=== PATIENT | female | born 1995 | race Caucasian/White ===

== ENCOUNTER → 2017-02-27 | Outpatient (CLI) | payer MEDICAID ==
--- NOTE | 2017-02-27 13:13 | Diagnostic Imaging Report ---
INDICATION: Dating. TECHNIQUE: Multiple real-time grayscale images were obtained over the gravid uterus. COMPARISON: None. FINDINGS: heart rate is 150 beats per minute. The placenta is fundal and posterior. No placenta previa. There is adequate amniotic fluid seen. The cervix appears closed and is 3.8 cm in length. The posterior fossa, lateral ventricles, four-chamber view, stomach, are seen without definitive abnormality. The spine, the cord insertion, The three vessel view and the urinary bladder are not well evaluated on this exam. The left kidney demonstrates slightly prominent renal collecting system with renal pelvis AP measurement measuring up to 8 mm. Biometrical measurements are as follows: Biparietal 5.13 cm, age 21 weeks 4 days. Head circumference 20.17 cm, age 22 weeks 3 days. Abdominal circumference 20.16 cm, age 24 weeks 6 days. Femur length 4.14 cm, age 23 weeks 4 days. Sonographic estimate age: 23 weeks 1 days. Sonographic estimated date of delivery: 06/25/2017. Estimated Weight: 638 gm (+/- 93 gm). LMP percentile: 78%. heart rate: 150 beats per minute. number: 1 of 1. IMPRESSION: The left renal collecting system is slightly prominent. Followup exam is recommended. Also followup to better evaluate cord insertion, spine, three-vessel cord and urinary bladder is recommended. Dictated by: Dictated on workstation # [id number]
== END ==
LOC: RAD 11:29
PROVIDERS: ATTEND Obstetrics & Gynecology
DX: O26.842 Uterine size-date discrepancy, second trimester (principal); Z3A.23 23 weeks gestation of pregnancy
CPT/HCPCS: 76805

== ENCOUNTER → 2017-05-04 | Outpatient (CLI) | payer MEDICAID ==
--- NOTE | 2017-05-04 14:12 | Diagnostic Imaging Report ---
INDICATION: Followup spine, cord insertion, left kidney, bladder and umbilical arteries. TECHNIQUE: Multiple real-time grayscale images were obtained over the gravid uterus. COMPARISON: 02/27/2017 FINDINGS: heart rate is 132 beats per minute. The presentation is cephalic. The head obscures the cervix. The placenta is fundal. No placenta previa. The amniotic fluid amount appears adequate with DAMARIS of 13.8 cm. The spine, urinary bladder, cord insertion, and 2 umbilical arteries suggested. The left kidney demonstrates no significant hydronephrosis. IMPRESSION: Completed survey with no definite abnormality. Dictated by: Dictated on workstation # [id number]
== END ==
LOC: RAD 10:04
PROVIDERS: ATTEND Obstetrics & Gynecology
DX: Z36.89 Encounter for other specified antenatal screening (principal); Z3A.32 32 weeks gestation of pregnancy
CPT/HCPCS: 76816

== ENCOUNTER 2017-06-16 16:10 | Inpatient (IN) | payer MEDICAID ==
[~2017-06-16] VITALS: Ht 162.6 cm; Wt 73.5 kg
[2017-06-16] VITALS (10 sets, daily range): BP systolic 96–126; BP diastolic 55–70
[2017-06-16] MEDS ORDERED: D5 LR IV SOLUTION 1,000 ML IV ONE (16:25)
[2017-06-16] MEDS: OXYTOCIN/NORMAL SALINE 500 ML IV SCH ×3 (16:28→19:03)
[2017-06-16] MEDS ORDERED: D5 LR IV SOLUTION 1,000 ML IV SCH (16:52)
--- NOTE | 2017-06-16 16:57 | History & Physical-OB ---
OB - Chief Complaint & HPI Date/Time Date of Admission: Date of Admission: 06/16/2017 Time Seen by Provider: 16:45 Chief Complaint/History Hx : 3 Hx Para: 1 Expected Date of Delivery: Jun 25, 2017 Gestational Age in Weeks: 38 Gestational Age in Days: 5 History of Labs O pos Antibody neg RI RPR NR HBsAg NR HIV NR GC neg GBS neg Allergies and Home Medications Allergies Coded Allergies: No Known Drug Allergies (Unverified , 03/11/17) Home Medications No Active Prescriptions or Reported Meds OB - History Hx of Present Care: No (late, minimal, and non-compliant) Ultrasounds: Normal mid trimester US Obstetrical Complications: None Medical Complications: None Patient Past Medical History n/a Immunizations Tetanus Booster (TDap): More than 5yrs OB - Admission Exam Physical Exam HEENT: NCAT Heart: Rhythm Normal Lungs: Clear Abdomen: Gravid Extremities: Normal Reflexes: Normal Cervical Dilatation: 7cm Effacement: 75% Station: -1 Membranes: Intact Heart Rate: 130's Accelerations: Accelerations Present Decelerations: No Decelerations Short Term Variability: Present Group Home Variability: Average (6-25) Contractions on Admission: 6-10 Minutes Apart Intensity: Firm OB - Assessment/Plan/Diagnosis Assessment Assessment: active labor Plan Induction Method: AROM Other Plan AROM Anticipate Discharge Diagnosis Diagnosis: 22 yo @ 38.5 Active labor GBS neg Limited care CLEO ROPER DO Jun 16, 2017 4:57 pm
[2017-06-16 17:12] LABS: BASOPHILS % (AUTO) 1 % (0-10); EOSINOPHILS % (AUTO) 0 % (0-10); HEMATOCRIT 35 % (35-52); HEMOGLOBIN 11.8 G/DL (11.5-16.0); LYMPHOCYTES # (AUTO) 0.7 X 10^3 (1.0-4.0); LYMPHOCYTES % (AUTO) 11 % (12-44); MEAN CORPUSCULAR HEMOGLOBIN 30 PG (25-34); MEAN CORPUSCULAR HGB CONC 33 G/DL (32-36); MEAN CORPUSCULAR VOLUME 90 FL (80-99); MEAN PLATELET VOLUME 10.2 FL (7.4-10.4); MONOCYTES # (AUTO) 0.4 X 10^3 (0.0-1.0); MONOCYTES % (AUTO) 7 % (0-12); NEUTROPHILS # (AUTO) 5.1 X 10^3 (1.8-7.8); NEUTROPHILS % (AUTO) 82 % (42-75); PLATELET COUNT 203 10^3/uL (130-400); RED BLOOD COUNT 3.93 10^6/uL (4.35-5.85); RED CELL DISTRIBUTION WIDTH 14.2 % (10.0-14.5); WHITE BLOOD COUNT 6.2 10^3/uL (4.3-11.0)
[2017-06-16 17:13] LABS: AMPHETAMINE SCREEN, URINE NEGATIVE (NEGATIVE); BARBITURATE SCREEN URINE NEGATIVE (NEGATIVE); BENZODIAZEPINES SCREEN URINE NEGATIVE (NEGATIVE); CANNABINOID SCREEN, URINE NEGATIVE (NEGATIVE); COCAINE SCREEN URINE NEGATIVE (NEGATIVE); METHADONE STAT NEGATIVE (NEGATIVE); METHAMPHETAMINE SCREEN URINE S NEGATIVE (NEGATIVE); OPIATE SCREEN URINE NEGATIVE (NEGATIVE); OXYCODONE STAT NEGATIVE (NEGATIVE); PROPOXYPHENE STAT NEGATIVE (NEGATIVE); TRICYCLIC ANTIDEPRESSANTS SCRE NEGATIVE (NEGATIVE)
--- NOTE | 2017-06-16 17:49 | Discharge Inst-Women's Service ---
Discharge Inst-Women's Serv Depart Medication/Instructions New, Converted or Re-Newed RX: RX on Chart Consults/Follow Up Additional Follow Up: Yes Activity Activity: Activity as Tolerated Driving Instructions: No Driving for 1 Week NO SMOKING: NO SMOKING Nothing Inside Vagina: No Douching, No [place], No Tampons Diet Discharge Diet: No Restrictions Symptoms to Report to : Bleeding Excessive, Pain Increased, Fever Over 101 Degrees F, Vaginal Bleeding Increase, Questions/Concerns For Any Problems or Questions: Contact Your Physician Skin/Wound Care Bathing Instructions: Shower ( x 2 weeks or sitz baths) CLEO ROPER DO Jun 16, 2017 5:49 pm
[2017-06-16] MEDS ORDERED: MINERAL OIL CONCENTRATE 99.9% 15 ML UDC ONE (17:52)
[2017-06-16] MEDS ORDERED: LIDOCAINE/EPI 2% 1:200,00 (XYLOCAINE) 10 ML VIAL ONE (17:52)
--- NOTE | 2017-06-16 17:55 | OB Labor & Delivery Record ---
L&D History Date of Service Date of Service: Jun 16, 2017 History Expected Date of Delivery: Jun 25, 2017 Gestational Age in Weeks: 38 Hx : 3 Hx Para: 1 Complications Events: Routine care (limited care) Operative Indications (Cesarea: N/A-Vaginal Delivery Intrapartal Events: None L&D Stage1 Stage One Onset of Labor - Date: Jun 16, 2017 Monitors and Tracing Monitor Mode: External Monitor Accelerations: None Monitor Decelerations: Variable Station: 0 Nursing Home Variability: Minimal (3-5) Short Term Variability: Present Presentation: Vertex Rupture of Membranes Amniotic Membrane Rupture Time: 16:45 Amniotic Membrane Fluid Desc.: Meconium Stained Vaginal Bleeding Description: Normal Show L&D Stage2 Stage Two Stage II Date: Jun 16, 2017 Monitors and Tracing Position: Right Occiput Anterior Presentation: Vertex Cord Descript/Complications Cord Vessel Description: 3 Vessels Complications Ineffective maternal pushing indication for low vaccum extraction. Mother was out of control with pushing, and screaming to get the baby out without any progression in station with pushing. From +2 station kiwi placed in appropriate usualy fashion and with next maternal push, head was extended for delivery over intact perineum Delivery Type Delivery Method: Low Vacuum Extraction Anterior Shoulder: Right Episiotomy/Perineal Laceration Laceraction(s)/Extensions: No Condition of Delivery 1 minute Comment: 8 5 minute Comment: 9 Condition of Infant Condition of Infant: Living live female infant weight pending Resuscitation Resuscitation: N/A - Spontaneous Resp L&D Stage3 Stage Three Stage III Date: Jun 16, 2017 Pictocin Pitocin Administration Comment: 30 mu wide open at delivery of placenta Placenta Delivery Placenta Delivery: Spontaneous Delivery Summary Summary Estimated blood loss (mL): 350 Attending at delivery: Cleo Roper DO Condition of Delivery Examined: Cervix Examined, Uterus Explored Post Hemorrhage: No Condition of Mother stable Condition of Infant (s) stable CLEO ROPER DO Jun 16, 2017 17:55
[2017-06-16] MEDS ORDERED: BENZOCAINE/MENTHOL (DERMOPLAST) 56 ML CAN TP PRN (18:00)
[2017-06-16] MEDS ORDERED: WITCH HAZEL(TUCKS) 40 EA JAR TOP PRN (18:00)
[2017-06-16] MEDS ORDERED: TETANUS,DIPTH,PERTUSS P/F (BOOSTRIX) 0.5 ML VIAL IM ONE (18:00)
[2017-06-16] MEDS ORDERED: DIBUCAINE (NUPERCAINAL) 1% OINT 30 GM TOP PRN (18:00)
[2017-06-16] MEDS ORDERED: MEASLES,MUMPS,RUBELLA 1 EA INJ SQ ONE (18:00)
[2017-06-16] MEDS ORDERED: HYDROcodone/APAP 5 MG/325 MG (LORTAB) TAB PO PRN (18:00)
[2017-06-16] MEDS ORDERED: IBUP-1773 PO (18:38)
[2017-06-16] MEDS ORDERED: DOCU100C37 PO (18:38)
[2017-06-16] MEDS ORDERED: FERR325T18 PO (18:38)
[2017-06-16] MEDS ORDERED: Benzocaine/Menthol TP (18:38)
[2017-06-16] MEDS ORDERED: ACHD5005 PO (18:38)
[2017-06-16] MEDS ORDERED: HYDROmorphone (DILAUDID) 2 MG/ML VIAL IVP NR (18:45)
[2017-06-16] MEDS: DOCUSATE SODIUM 100 MG (COLACE) CAP PO SCH (20:51)
[2017-06-16] MEDS: IBUPROFEN 600 MG (MOTRIN) TAB PO SCH (20:51)
[2017-06-16] MEDS ORDERED: CATHETER FLUSH 10 ML SYR IV SCH ×2 (22:00)
[2017-06-17] MEDS: IBUPROFEN 600 MG (MOTRIN) TAB PO SCH ×4 (01:59→19:53)
[2017-06-17 05:00] VITALS: BP 94/53
[2017-06-17] MEDS ORDERED: FERROUS SULF 325 MG (IRON) TAB PO SCH (07:00)
[2017-06-17 07:25] LABS: HEMATOCRIT 30 % (35-52); HEMOGLOBIN 9.8 G/DL (11.5-16.0); MEAN CORPUSCULAR HEMOGLOBIN 30 PG (25-34); MEAN CORPUSCULAR VOLUME 90 FL (80-99); RED BLOOD COUNT 3.28 10^6/uL (4.35-5.85); WHITE BLOOD COUNT 5.7 10^3/uL (4.3-11.0)
[2017-06-17 07:26] LABS: BASOPHILS % (AUTO) 0 % (0-10); EOSINOPHILS % (AUTO) 0 % (0-10); LYMPHOCYTES % (AUTO) 18 % (12-44); MEAN CORPUSCULAR HGB CONC 33 G/DL (32-36); MEAN PLATELET VOLUME 10.5 FL (7.4-10.4); MONOCYTES # (AUTO) 0.4 X 10^3 (0.0-1.0); MONOCYTES % (AUTO) 7 % (0-12); NEUTROPHILS # (AUTO) 4.2 X 10^3 (1.8-7.8); NEUTROPHILS % (AUTO) 74 % (42-75); PLATELET COUNT 187 10^3/uL (130-400); RED CELL DISTRIBUTION WIDTH 13.9 % (10.0-14.5)
[2017-06-17] MEDS ORDERED: INFLUENZA TRIvalent 2017-2018 0.5 ML/45 MCG SYR IM ONE (07:30)
[2017-06-17] MEDS ORDERED: TETANUS,DIPTH,PERTUSS P/F (BOOSTRIX) 0.5 ML VIAL IM ONE (09:24)
[2017-06-17 09:29] VITALS: BP 102/64
[2017-06-17] MEDS: DOCUSATE SODIUM 100 MG (COLACE) CAP PO SCH ×2 (09:31→19:53)
[2017-06-17] MEDS: PRENATAL VITAMIN 1 EA TAB PO SCH (09:31)
--- NOTE | 2017-06-17 12:24 | Postpartum Progress Note ---
Note Note Day # 1 s/p Subjective: Patient is without complaints. Ambulating, voiding. Tolerating a regular diet without nausea or vomiting. Normal lochia. Pain is well controlled with oral pain medications. bottle feeding. Objective: Laboratory Tests Test 06/16/17 16:40 06/16/17 17:03 06/17/17 07:19 Range/Units Urine Opiates Screen NEGATIVE NEGATIVE Urine Oxycodone Screen NEGATIVE NEGATIVE Urine Methadone Screen NEGATIVE NEGATIVE Urine Propoxyphene Screen NEGATIVE NEGATIVE Urine Barbiturates Screen NEGATIVE NEGATIVE Ur Tricyclic Antidepressants Screen NEGATIVE NEGATIVE Urine Phencyclidine Screen NEGATIVE NEGATIVE Urine Amphetamines Screen NEGATIVE NEGATIVE Urine Methamphetamines Screen NEGATIVE NEGATIVE Urine Benzodiazepines Screen NEGATIVE NEGATIVE Urine Cocaine Screen NEGATIVE NEGATIVE Urine Cannabinoids Screen NEGATIVE NEGATIVE White Blood Count 6.2 5.7 4.3-11.0 10^3/uL Red Blood Count 3.93 L 3.28 L 4.35-5.85 10^6/uL Hemoglobin 11.8 9.8 L 11.5-16.0 G/DL Hematocrit 35 30 L 35-52 % Mean Corpuscular Volume 90 90 80-99 FL Mean Corpuscular Hemoglobin 30 30 25-34 PG Mean Corpuscular Hemoglobin Concent 33 33 32-36 G/DL Red Cell Distribution Width 14.2 13.9 10.0-14.5 % Platelet Count 203 187 130-400 10^3/uL Mean Platelet Volume 10.2 10.5 H 7.4-10.4 FL Neutrophils (%) (Auto) 82 H 74 42-75 % Lymphocytes (%) (Auto) 11 L 18 12-44 % Monocytes (%) (Auto) 7 7 0-12 % Eosinophils (%) (Auto) 0 0 0-10 % Basophils (%) (Auto) 1 0 0-10 % Neutrophils # (Auto) 5.1 4.2 1.8-7.8 X 10^3 Lymphocytes # (Auto) 0.7 L 1.0 1.0-4.0 X 10^3 Monocytes # (Auto) 0.4 0.4 0.0-1.0 X 10^3 Eosinophils # (Auto) 0.0 0.0 0.0-0.3 10^3/uL Basophils # (Auto) 0.0 0.0 0.0-0.1 10^3/uL Vital Sign - Last 12Hours 06/17/17 06/17/17 05:00 09:29 Temp 96.6 98.4 Pulse 88 82 Resp 18 18 B/P (MAP) 94/53 (67) 102/64 (77) Pulse Ox 99 O2 Delivery Room Air Intake and Output 06/17/17 00:00 Intake Total 1300 ml Balance 1300 ml Physical Exam: General - Alert and oriented, no apparent distress Abdomen - Soft, appropriately tender to palpation, non-distended, fundus firm at umbilicus Extremities - no edema, negative Joy's bilaterally Assessment: 1. post- day # 1, status post Vacuum assisted vaginal delivery. Recovering well, hemodynamically stable Plan: Routine care. Encourage breast feeding. Encourage ambulation. Ferrous sulfate supplementation. Plan for discharge tomorrow Vitals - Labs Vital Signs - I&O Vital Signs Date Time Temp Pulse Resp B/P (MAP) Pulse Ox O2 Delivery O2 Flow Rate FiO2 06/17/17 09:29 98.4 82 18 102/64 (77) 99 Room Air 06/17/17 05:00 96.6 88 18 94/53 (67) 06/16/17 23:30 98.4 86 18 102/64 (77) 98 06/16/17 20:45 100 102/55 (71) 06/16/17 20:30 104 104/57 (73) 06/16/17 20:15 100 114/64 (81) 06/16/17 20:01 98 20 105/55 (72) 06/16/17 19:16 98.0 104 20 115/55 (75) 06/16/17 19:00 100 20 117/59 (78) 06/16/17 18:45 91 20 126/63 (84) 06/16/17 17:33 104 20 114/70 (85) 06/16/17 17:09 99.7 98 20 96/55 (69) I & O 06/17/17 07:00 Intake Total 1300 ml Balance 1300 ml Labs Laboratory Tests 06/16/17 16:40: Urine Opiates Screen NEGATIVE, Urine Oxycodone Screen NEGATIVE, Urine Methadone Screen NEGATIVE, Urine Propoxyphene Screen NEGATIVE, Urine Barbiturates Screen NEGATIVE, Ur Tricyclic Antidepressants Screen NEGATIVE, Urine Phencyclidine Screen NEGATIVE, Urine Amphetamines Screen NEGATIVE, Urine Methamphetamines Screen NEGATIVE, Urine Benzodiazepines Screen NEGATIVE, Urine Cocaine Screen NEGATIVE, Urine Cannabinoids Screen NEGATIVE 06/16/17 17:03: White Blood Count 6.2, Red Blood Count 3.93L, Hemoglobin 11.8, Hematocrit 35, Mean Corpuscular Volume 90, Mean Corpuscular Hemoglobin 30, Mean Corpuscular Hemoglobin Concent 33, Red Cell Distribution Width 14.2, Platelet Count 203, Mean Platelet Volume 10.2, Neutrophils (%) (Auto) 82H, Lymphocytes (%) (Auto) 11L, Monocytes (%) (Auto) 7, Eosinophils (%) (Auto) 0, Basophils (%) (Auto) 1, Neutrophils # (Auto) 5.1, Lymphocytes # (Auto) 0.7L, Monocytes # (Auto) 0.4, Eosinophils # (Auto) 0.0, Basophils # (Auto) 0.0 06/17/17 07:19: White Blood Count 5.7, Red Blood Count 3.28L, Hemoglobin 9.8L, Hematocrit 30L, Mean Corpuscular Volume 90, Mean Corpuscular Hemoglobin 30, Mean Corpuscular Hemoglobin Concent 33, Red Cell Distribution Width 13.9, Platelet Count 187, Mean Platelet Volume 10.5H, Neutrophils (%) (Auto) 74, Lymphocytes (%) (Auto) 18 , Monocytes (%) (Auto) 7, Eosinophils (%) (Auto) 0, Basophils (%) (Auto) 0, Neutrophils # (Auto) 4.2, Lymphocytes # (Auto) 1.0, Monocytes # (Auto) 0.4, Eosinophils # (Auto) 0.0, Basophils # (Auto) 0.0 MEGGAN WILDE DO Jun 17, 2017 12:24
[2017-06-17 14:39] VITALS: BP 98/63
[2017-06-17 17:44] VITALS: BP 107/66
[2017-06-17] MEDS: FERROUS SULF 325 MG (IRON) TAB PO SCH (17:44)
[2017-06-17 19:50] VITALS: BP 116/65
[2017-06-17] MEDS ORDERED: ACETAMINOPHEN 500 MG TAB (TYLENOL) PO ONE (20:45)
[2017-06-18] MEDS: IBUPROFEN 600 MG (MOTRIN) TAB PO SCH ×2 (01:23→11:06)
[2017-06-18 01:25] VITALS: BP 99/62
[2017-06-18] MEDS ORDERED: ACETAMINOPHEN 500 MG TAB (TYLENOL) PO SCH (03:00)
[2017-06-18 06:04] LABS: BASOPHILS % (AUTO) 0 % (0-10); EOSINOPHILS % (AUTO) 0 % (0-10); HEMATOCRIT 28 % (35-52); HEMOGLOBIN 9.3 G/DL (11.5-16.0); LYMPHOCYTES # (AUTO) 1.2 X 10^3 (1.0-4.0); LYMPHOCYTES % (AUTO) 19 % (12-44); MEAN CORPUSCULAR HEMOGLOBIN 30 PG (25-34); MEAN CORPUSCULAR HGB CONC 33 G/DL (32-36); MEAN CORPUSCULAR VOLUME 90 FL (80-99); MEAN PLATELET VOLUME 10.2 FL (7.4-10.4); MONOCYTES # (AUTO) 0.5 X 10^3 (0.0-1.0); MONOCYTES % (AUTO) 9 % (0-12); NEUTROPHILS # (AUTO) 4.4 X 10^3 (1.8-7.8); NEUTROPHILS % (AUTO) 72 % (42-75); PLATELET COUNT 166 10^3/uL (130-400); RED BLOOD COUNT 3.13 10^6/uL (4.35-5.85); RED CELL DISTRIBUTION WIDTH 13.9 % (10.0-14.5)
[2017-06-18 10:10] VITALS: BP 96/62
[2017-06-18] MEDS: FERROUS SULF 325 MG (IRON) TAB PO SCH (10:15)
[2017-06-18] MEDS: PRENATAL VITAMIN 1 EA TAB PO SCH (11:05)
[2017-06-18] MEDS: DOCUSATE SODIUM 100 MG (COLACE) CAP PO SCH (11:06)
--- NOTE | 2017-06-18 11:33 | Postpartum Progress Note ---
Note Note Day # 2 s/p Developed fever last night (102) without explanation. No focal symptoms except fever, chills. WBC wnl. UA negative. Influenza negative. No nausea/emesis/ diarrhea/dysuria. Lungs clear, no cough, congestion. Improved with tylenol and Ibuprofen Subjective: Patient is without complaints. Ambulating, voiding. Tolerating a regular diet without nausea or vomiting. Normal lochia. Pain is well controlled with oral pain medications. bottle feeding Objective: Laboratory Tests Test 06/18/17 05:46 Range/Units White Blood Count 6.0 4.3-11.0 10^3/uL Red Blood Count 3.13 L 4.35-5.85 10^6/uL Hemoglobin 9.3 L 11.5-16.0 G/DL Hematocrit 28 L 35-52 % Mean Corpuscular Volume 90 80-99 FL Mean Corpuscular Hemoglobin 30 25-34 PG Mean Corpuscular Hemoglobin Concent 33 32-36 G/DL Red Cell Distribution Width 13.9 10.0-14.5 % Platelet Count 166 130-400 10^3/uL Mean Platelet Volume 10.2 7.4-10.4 FL Neutrophils (%) (Auto) 72 42-75 % Lymphocytes (%) (Auto) 19 12-44 % Monocytes (%) (Auto) 9 0-12 % Eosinophils (%) (Auto) 0 0-10 % Basophils (%) (Auto) 0 0-10 % Neutrophils # (Auto) 4.4 1.8-7.8 X 10^3 Lymphocytes # (Auto) 1.2 1.0-4.0 X 10^3 Monocytes # (Auto) 0.5 0.0-1.0 X 10^3 Eosinophils # (Auto) 0.0 0.0-0.3 10^3/uL Basophils # (Auto) 0.0 0.0-0.1 10^3/uL Vital Sign - Last 12Hours 06/18/17 01:25 Temp 96.9 Pulse 66 Resp 18 B/P (MAP) 99/62 (74) Pulse Ox 98 Tc 97.9 BP 96/53 P 70 VS - Last 72 Hours, by Label 06/16/17 06/16/17 06/16/17 06/16/17 17:09 17:33 18:45 19:00 Temp 99.7 Pulse 98 104 91 100 Resp 20 20 20 20 B/P (MAP) 96/55 (69) 114/70 (85) 126/63 (84) 117/59 (78) 06/16/17 06/16/17 06/16/17 06/16/17 19:16 20:01 20:15 20:30 Temp 98.0 Pulse 104 98 100 104 Resp 20 20 B/P (MAP) 115/55 (75) 105/55 (72) 114/64 (81) 104/57 (73) 06/16/17 06/16/17 06/17/17 06/17/17 20:45 23:30 05:00 09:29 Temp 98.4 96.6 98.4 Pulse 100 86 88 82 Resp 18 18 18 B/P (MAP) 102/55 (71) 102/64 (77) 94/53 (67) 102/64 (77) Pulse Ox 98 99 O2 Delivery Room Air 06/17/17 06/17/17 06/17/17 06/17/17 14:39 17:44 19:50 19:52 Temp 97.8 99.0 101.4 99.4 Pulse 82 81 107 Resp 18 18 18 B/P (MAP) 98/63 (75) 107/66 (80) 116/65 (82) Pulse Ox 99 99 99 O2 Delivery Room Air Room Air 06/17/17 06/17/17 06/17/17 06/17/17 20:20 20:21 21:10 21:10 Temp 102.9 102.0 101.0 101.0 Pulse 91 Pulse Ox 98 06/18/17 01:25 Temp 96.9 Pulse 66 Resp 18 B/P (MAP) 99/62 (74) Pulse Ox 98 Physical Exam: General - Alert and oriented, no apparent distress Abdomen - Soft, appropriately tender to palpation, non-distended, fundus firm at umbilicus Extremities - no edema, negative Joy's bilaterally Lungs - CTA Assessment: 1 post- day # 2, status post VA vaginal delivery. Recovering well, hemodynamically stable 2. Acute blood loss anemia - stable, on iron 3. febrile. Unclear etiology, but workup negative. Afebrile this am. [] Plan: Routine care. Encourage breast feeding. Encourage ambulation. Ferrous sulfate supplementation. Plan for discharge today Vitals - Labs Vital Signs - I&O Vital Signs Date Time Temp Pulse Resp B/P (MAP) Pulse Ox O2 Delivery O2 Flow Rate FiO2 06/18/17 01:25 96.9 66 18 99/62 (74) 98 06/17/17 21:10 101.0 06/17/17 21:10 101.0 06/17/17 20:21 102.0 06/17/17 20:20 102.9 91 98 06/17/17 19:52 99.4 06/17/17 19:50 101.4 107 18 116/65 (82) 99 06/17/17 17:44 99.0 81 18 107/66 (80) 99 Room Air 06/17/17 14:39 97.8 82 18 98/63 (75) 99 Room Air Labs Laboratory Tests 06/18/17 05:46: White Blood Count 6.0, Red Blood Count 3.13L, Hemoglobin 9.3L, Hematocrit 28L, Mean Corpuscular Volume 90, Mean Corpuscular Hemoglobin 30, Mean Corpuscular Hemoglobin Concent 33, Red Cell Distribution Width 13.9, Platelet Count 166, Mean Platelet Volume 10.2, Neutrophils (%) (Auto) 72, Lymphocytes (%) (Auto) 19 , Monocytes (%) (Auto) 9, Eosinophils (%) (Auto) 0, Basophils (%) (Auto) 0, Neutrophils # (Auto) 4.4, Lymphocytes # (Auto) 1.2, Monocytes # (Auto) 0.5, Eosinophils # (Auto) 0.0, Basophils # (Auto) 0.0 Microbiology 06/17/17 Influenza Types A,B Antigen (YO) - Final, Complete MEGGAN WILDE DO Jun 18, 2017 11:33
--- NOTE | 2017-06-20 11:08 | Physician Query-Final Dx ---
HARDEEP MADERA 06/20/17 1108: Final Diagnosis Give Final Diagnosis Please give Final Diagnosis CLEO ROPER DO 06/20/17 1217: Final Diagnosis Give Final Diagnosis PPD 2 [facility] HARDEEP MADERA Jun 20, 2017 11:08 CLEO ROPER DO Jun 20, 2017 12:17
== END 2017-06-18 14:00 | disposition home or self-care (01) | DRG 774 ==
LOC: WSo 16:10 → LDRP 16:11 → WSo 18:37 → LDRP 18:39
PROVIDERS: ADMIT Obstetrics & Gynecology; ATTEND Obstetrics & Gynecology
PROC: 10D07Z6 Extraction of Products of Conception, Vacuum, Via Natural or Artificial Opening (ICD-10-PCS; principal; 2017-06-16)
DX: O26.893 Other specified pregnancy related conditions, third trimester (principal); O09.33 Supervision of pregnancy with insufficient antenatal care, third trimester; O86.4 Pyrexia of unknown origin following delivery; O99.03 Anemia complicating the puerperium; D64.9 Anemia, unspecified; Z3A.38 38 weeks gestation of pregnancy; Z37.0 Single live birth; Z23 Encounter for immunization
CPT/HCPCS: 36415; 80306; 85025; 86850; 86900; 86901; 87804; 90715; 99212